=== PATIENT | female | born 1935 | race Caucasian/White ===

== ENCOUNTER → 2023-11-04 14:14 | Outpatient (REF) | payer OTHER, SELFPAY | LOC: HWRAD 14:14 | PROVIDERS: ATTENDING PHYSICIAN Nurse Practitioner Family | DX: M25.512 Pain in left shoulder (principal) | CPT/HCPCS: 73030 ==

== ENCOUNTER → 2023-12-14 12:56 | Outpatient (REF) | payer OTHER, SELFPAY | LOC: HWRAD 12:56 | PROVIDERS: ATTENDING PHYSICIAN Physician Assistant | DX: J20.9 Acute bronchitis, unspecified (principal) | CPT/HCPCS: 71046 ==

== ENCOUNTER → 2024-07-01 10:12 | Outpatient (REF) | payer OTHER, SELFPAY | LOC: HWRAD 10:12 | PROVIDERS: ATTENDING PHYSICIAN Internal Medicine Cardiovascular Disease; FAMILY PHYSICIAN Family Medicine; REFERRING PHYSICIAN Ophthalmology | DX: H34.9 Unspecified retinal vascular occlusion (principal) | CPT/HCPCS: 93880 ==

== ENCOUNTER → 2024-07-06 13:42 | Outpatient (REF) | payer OTHER, SELFPAY | LOC: HWRAD 13:42 | PROVIDERS: ATTENDING PHYSICIAN Family Medicine | DX: Z00.01 Encounter for general adult medical examination with abnormal findings (principal); S40.011A Contusion of right shoulder, initial encounter | CPT/HCPCS: 73030 ==

== ENCOUNTER 2024-11-15 15:26 | Emergency (ER) | payer OTHER, SELFPAY ==
[2024-11-15 15:28] VITALS: BP 128/48
--- NOTE | 2024-11-15 17:47 | ED.GENMED ---
History of Present Illness
General
Chief Complaint: Skin Surface Trauma
Time Seen by Provider: 11/15/24 17:32
History of Present Illness
History of Present Illness:
88-year-old female presents to the Emergency Department for evaluation of a right lower leg laceration sustained when she was at the grocery store and struck her leg against the box. Bleeding is controlled with pressure. She is able to ambulate.
Last tetanus is unknown
Past History
Past History
ED Past Medical History: Hypercholesterolemia and Hypothyroidism
ED Past Surgical History: Appendectomy and Cholecystectomy
Social History
Tobacco: Non-smoker
Living: with family
Employment: Retired
Review of Systems
Review of Systems
Allergies reviewed?: Yes
All Other Systems: ROS reviewed and negative except as documented in HPI and ROS
Phy Exam
Physical Exam
Physical Exam:
GEN: Well appearing, NAD, WDWN
HEENT: Oral mucosa moist, no scleral icterus
Cardiac: Regular rate
Lung: No respiratory distress, no tachypnea
MSK: No gross deformity or injuries
Skin: Good color, no pallor or jaundice, no rashes. 4 cm V-shaped laceration to the right lateral lower leg with no active bleeding
Neuro: AO x3, moves all extremities freely
Psych: Calm, cooperative
Course
Orders/Labs/Results
Orders:
Orders
11/15/24 17:53
Tetanus/Diphth/Acelpertussis [Adacel] 0.5 ml IM .ONCE ONE
Vital Signs
Initial and Last Documented VS:
Initial Vital Signs
Temp Pulse Resp BP Pulse Ox
97.8 F 64 16 128/48 97
11/15/24 15:28 11/15/24 15:28 11/15/24 15:28 11/15/24 15:28 11/15/24 15:28
Last Documented Vital Signs
Temp Pulse Resp BP Pulse Ox
97.8 F 64 16 128/48 97
11/15/24 15:28 11/15/24 15:28 11/15/24 15:28 11/15/24 15:28 11/15/24 17:50
MDM/Problems Addressed
MDM/Problems Addressed:
Wound irrigated and closed with Dermabond mesh system, discussed supportive care
*Pulse Oximetry
SaO2: 97
Oxygen Mode of Delivery: Room air
Patient hypoxic: no
*Critical Care Note
Total Time (30-74mins, 75-104mins- exclusive of procedures): Not Applicable
ED Attending Note
-
Portions of this chart may have been created with voice recognition software.� Occasional wrong word or��sound alike� substitutions may have occurred due to the inherent limitations of voice recognition software.
Discharge Plan
Departure
Patient Disposition: Home (Routine Discharge)
Date of Disposition: 11/15/24
Time of Disposition: 17:50
Patient with high blood pressure during this ER visit?: No
Discharge Problem:
Noninfected skin tear of right leg
Instructions: Laceration Repair With Glue (DC)
Prescriptions:
No Action
prednisone 20 MG tablet
20 mg PO DAILY Qty: 5 0RF
Activity Restrictions/Additional Instructions:
You may get the area wet however do not scrub as this can breakdown the glue hall. This should gradually dissolve over the next 7 to 10 days.
Interventions
Interventions:
*Risk Screen - Suicide Last Done: 11/15/24 18:10
*General Assessment Last Done: 11/15/24 17:48
*Neglect/Abuse Screening Last Done: 11/15/24 17:48
*ED COVID-19 Vaccine History Last Done: 11/15/24 17:48
*Nursing Disposition Last Done: 11/15/24 18:10
ED-Skin Assessment Last Done: 11/15/24 17:14
Discharge Date and Time
Discharge Date/Time: 11/15/24 18:11
Print Language: SWAZI
[2024-11-15] MEDS: ADACEL 0.5 ML IM (18:01)
== END 2024-11-15 18:11 | disposition home or self-care (01) ==
LOC: EMR 15:26
PROVIDERS: EMERGENCY PHYSICIAN Emergency Medicine; FAMILY PHYSICIAN Family Medicine
DX: S81.811A Laceration without foreign body, right lower leg, initial encounter (principal); W22.8XXA Striking against or struck by other objects, initial encounter; Y92.512 Supermarket, store or market as the place of occurrence of the external cause; E03.9 Hypothyroidism, unspecified; E78.00 Pure hypercholesterolemia, unspecified; Z90.49 Acquired absence of other specified parts of digestive tract; Z23 Encounter for immunization
CPT/HCPCS: 90471; 12001; 99282; 90715

== ENCOUNTER → 2025-01-05 09:46 | Outpatient (REF) | payer OTHER, SELFPAY | LOC: HWRCS 09:46 | PROVIDERS: ATTENDING PHYSICIAN Internal Medicine Cardiovascular Disease; FAMILY PHYSICIAN Family Medicine | DX: I50.30 Unspecified diastolic (congestive) heart failure (principal); I35.0 Nonrheumatic aortic (valve) stenosis; I35.1 Nonrheumatic aortic (valve) insufficiency | CPT/HCPCS: 93306 ==

== ENCOUNTER → 2025-02-01 13:58 | Outpatient (REF) | payer OTHER, SELFPAY | LOC: RAD 13:58 | PROVIDERS: ATTENDING PHYSICIAN Physician Assistant; FAMILY PHYSICIAN Family Medicine | DX: D64.9 Anemia, unspecified (principal); R63.4 Abnormal weight loss | CPT/HCPCS: 74177; Q9967 ==